=== PATIENT | male | born 1980 | race Caucasian/White ===

== ENCOUNTER 2019-03-05 20:18 | Emergency (ER) | payer BC ==
[2019-03-05 20:24] VITALS: BP 114/80; PULSE 78; RESP 16; TEMP 98.3
[2019-03-05] MEDS ORDERED: DIPH,PERTUS(ACELL)TETVAC-LF 0.5 ML VIAL IM ONE (20:59)
[2019-03-05] MEDS ORDERED: CEPHALEXIN 500 MG CAP PO STA (20:59)
[2019-03-05] MEDS ORDERED: CEPHALEXIN 500MG STARTER PACK 4 CAP BTL PO STA (20:59)
[2019-03-05] MEDS ORDERED: predniSONE 50 MG TAB PO STA (20:59)
--- NOTE | 2019-03-05 21:20 | ED ---
General Adult HPI - General Chief complaint: Skin/Abscess/Foreign Body Stated complaint: Bee sting Time Seen by Provider: 03/05/19 20:26 Source: patient, RN notes reviewed, old records reviewed Mode of arrival: ambulatory Limitations: no limitations - History of Present Illness Initial comments: 38-year-old male patient presents ED chief complaint of redness and swelling following sting by a bee. 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 Patient states that he has had reactions from bee stings in the past. Patient reports that he has swelling pain and redness around bee sting site. Patient denies any other complaints. Denies any difficulty breathing. Denies any systemic rash, nausea vomiting d iarrhea, angioedema. Systemic: Pt denies fatigue, fever/chills, rash. Pt denies weakness, night sweats, weight loss. Neuro: Pt denies headache, visual disturbances, syncope or pre-syncope. HEENT: Pt denies ocular discharge or irritation, otalgia, rhinorrhea, pharyngitis or notable lymphadenopathy. Cardiopulmonary: Pt denies chest pain, SOB, heart palpitations, dyspnea on exertion. Abdominal/GI: Pt denies abdominal pain, n/v/d. : Pt denies dysuria, burning w/ urination, frequency/urgency. Denies new onset urinary or bowel incontinence. MSK: Pt denies myalgia, loss of strength or function in extremities. Neuro: Pt denies new onset weakness, paresthesias. - Related Data Previous Rx's Medication Instructions Recorded Cephalexin [Keflex] 500 mg PO Q6HR 7 Days #28 cap 03/05/19 EPINEPHrine [Epipen 2-Mark] 0.3 mg IM ONCE PRN #1 pack 03/05/19 predniSONE 50 mg PO DAILY #4 tab 03/05/19 Allergies Allergy/AdvReac Type Severity Reaction Status Date / Time bee venom protein (honey bee) AdvReac Rash/Hives Verified 03/05/19 20:24 Review of Systems ROS Statement: Those systems with pertinent positive or pertinent negative responses have been documented in the HPI. ROS Other: All systems not noted in ROS Statement are negative. Past Medical History Past Medical History: No Reported History Past Surgical History: Tonsillectomy Smoking Status: Never smoker Past Alcohol Use History: None Reported Past Drug Use History: None Reported General Exam - General Exam Comments Initial Comments: Constitutional: NAD, AOX3, Pt has pleasant affect. HEENT: NC/AT, trachea midline, neck supple, no lymphadenopathy. Posterior pharynx non erythematous, without exudates. External ears appear normal, without discharge. Mucous membranes moist. Eyes PERRLA, EOM intact. There is no scleral icterus. No pallor noted. Cardiopulmonary: RRR, no murmurs, rubs or gallops, no JVD noted. Lungs CTAB in anterior and posterior perez. No peripheral edema. Abdominal exam: Abdomen soft and non-distended. Abdomen non-tender to palpation in all 4 quadrants. Bowel sounds active in LLQ. No hepatosplenomegaly. No ecchymosis Neuro: CN II-XII grossly intact. No nuchal rigidity. No raccon eyes, no landeros sign, no hemotympanum. No cervical spinal tenderness. MSK: Raised mildly tender papule in area of complaint. Localized erythema. No streaking. No posterior calf tenderness bilaterally, homans sign negative bilaterally. Posterior tibialis and radial pulse +2 bilaterally. Sensation intact in upper and lower extremities. Full active ROM in upper and lower extremities, 5/5 stregnth. Limitations: no limitations Course Vital Signs 03/05/19 20:22 Temperature 98.3 F Pulse Rate 78 Respiratory 16 Rate Blood Pressure 114/80 O2 Sat by Pulse 98 Oximetry Medical Decision Making - Medical Decision Making 38-year-old male patient presents ED chief complaint of redness and swelling following sting by a bee. 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 Patient states that he has had reacti ons from bee stings in the past. Patient reports that he has swelling pain and redness around bee sting site. Patient denies any other complaints. Denies any difficulty breathing. Denies any systemic rash, nausea vomiting diarrhea, angioedema. PT VSS, afebrile. Physical exam displayed: Raised mildly tender papule in area of complaint. Localized erythema. No streaking. Patient administered prednisone and Keflex. Patient discharged with her steroid treatment, prophylactic antibiotics. Patient tetanus updated. Patient will be discharged with prescription for EpiPen for use in emergency and flexes. Return precautions discussed. Case discussed with Dr. Chi. Disposition Clinical Impression: Bee sting Disposition: HOME SELF-CARE Condition: Stable Additional Instructions: Patient to adhere to previously discussed treatment plan and will take m edication(s) as directed. Patient to follow up with PCP in 1-2 days. Patient to return to ED if symptoms do not improve. Take medications as prescribed, return to ER if condition worsens. Use epi pen in emergency anaphylaxis. Prescriptions: EPINEPHrine [Epipen 2-Mark] 0.3 mg IM ONCE PRN #1 pack PRN Reason: Anaphylaxis Cephalexin [Keflex] 500 mg PO Q6HR 7 Days #28 cap predniSONE 50 mg PO DAILY #4 tab Is patient prescribed a controlled substance at d/c from ED?: No Referrals: None,Stated [Primary Care Provider] - 1-2 days
== END 2019-03-05 21:55 | disposition home or self-care (01) ==
LOC: EC 20:18
DX: T63.441A Toxic effect of venom of bees, accidental (unintentional), initial encounter (principal); Z23 Encounter for immunization
CPT/HCPCS: 90715; 99283; 90471; J7512